=== PATIENT | male | born 1950 | race Caucasian/White ===

== ENCOUNTER 2020-04-01 20:07 | Emergency (ER) | payer MEDICARE ==
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
== END 2020-04-01 21:10 | disposition home or self-care (01) ==
LOC: LB.ED 20:07
DX: M79.631 Pain in right forearm (principal); X58.XXXA Exposure to other specified factors, initial encounter
CPT/HCPCS: 99282; 99283